=== PATIENT | female | born 1955 | race Caucasian/White ===

== ENCOUNTER → 2022-02-14 | Day surgery (SDC) | payer MEDICARE, OTHER ==
[~2022-02-14] VITALS: Ht 160 cm; Wt 77.1 kg
[~2022-02-14] MED LIST: GABAPENTIN 100100 MG PO; NORCO 5-325 TA1 EACH PO; RALOXIFENE HCL60 MG PO
== END | disposition home or self-care (01) ==
LOC: FAS 07:00
DX: Z12.11 Encounter for screening for malignant neoplasm of colon (principal); D12.6 Benign neoplasm of colon, unspecified; D12.9 Benign neoplasm of anus and anal canal; K62.3 Rectal prolapse; K64.9 Unspecified hemorrhoids; K57.30 Diverticulosis of large intestine without perforation or abscess without bleeding; Z96.653 Presence of artificial knee joint, bilateral; Z90.11 Acquired absence of right breast and nipple; Z86.010 Personal history of colon polyps
CPT/HCPCS: 36415; 80053; J1610; J1885; J2405; J2704; J7120